=== PATIENT | female | born 1935 | race Caucasian/White ===

== ENCOUNTER 2017-05-13 08:17 | Observation (INO) ==
--- NOTE | 2017-05-13 08:23 | Emergency Department Note ---
Disposition Clinical Impression: Hypertension Qualifiers: Hypertension type: secondary to other renal disorders Qualified Code(s): I15.1 - Hypertension secondary to other renal disorders; N28.89 - Other specified disorders of kidney and ureter Disposition: Admitted As Inpatient Condition: Good Time of Disposition: 08:51 General Adult HPI - General Stated complaint: hypertension Time Seen by Provider: 05/13/17 08:19 Source: patient Mode of arrival: ambulatory Limitations: no limitations Nursing Notes Reviewed: Yes Vital Signs Reviewed: Yes - History of Present Illness HPI Narrative: 81 year old female presents to the ED with complaints of HTN. I recieved report for Dr. Dee who was prepping patient for bronchoscopy today secondary for further investigation of her lung cancer. Unfortunately, she is further complicated with a long standing history of chronic hypertension secondary to severe kidney disase and it is difficult to manage her blood pressure due to her kidney disease. The anethesia team did feel it was appropiate to sedate patient because of the hyperntension and would like it to be controlled before proceeding with anesthesia. She is asymptomatic and currently her blood pressure is 200/120. Patient arrives to the ED for admission to medicine for a possible bronchoscopy in the morning. Patient denies chest pain, shortness of breath, nausea, vomitting, or abdonminal pain, headache, or motor/senory neuro defecits. Patient baseline blood pressure is typically 170/110s and most recently her nephorlogist increased her atenolol dose. - Related Data Home Medications Medication Instructions Recorded Confirmed Atenolol [Tenormin] 25 mg PO BID 01/23/16 05/07/17 Folic Acid [FA-8] 1 mg PO DAILY 01/23/16 05/07/17 Levothyroxine [Synthroid] 175 mcg PO 0630 01/23/16 05/07/17 Cholecalciferol (D-3) [Vitamin D] 1,000 unit PO DAILY 09/08/16 05/07/17 Multivit-Min/FA/Lycopen/Lutein 1 each PO DAILY 09/08/16 05/07/17 [Centrum Silver Tablet] Valsartan 320 mg PO DAILY 09/08/16 05/07/17 Albuterol Sulfate [Albuterol 1 puff IH AD 04/22/17 05/07/17 Inhaler] Methotrexate [Otrexup] 6 tab PO QWEEK 04/22/17 05/07/17 Montelukast [Singulair] 10 mg PO DAILY 04/22/17 05/07/17 Previous Rx's Medication Instructions Recorded Fluticasone/Salmeterol [Advair 2 puff IH BID #1 blst.w.dev 05/07/17 250-50 Diskus] Allergies Allergy/AdvReac Type Severity Reaction Status Date / Time adalimumab [From Humira] Allergy See Verified 05/13/17 08:21 Comments amlodipine Allergy Palpitation Verified 05/13/17 08:21 s lisinopril Allergy See Verified 05/13/17 08:21 Comments losartan [Losartan] Allergy See Verified 05/13/17 08:21 Comments meperidine [From Demerol] Allergy Vomiting Verified 05/13/17 08:21 latex AdvReac Rash Verified 05/13/17 08:21 black dye AdvReac Hives Uncoded 05/13/17 08:21 Constitutional: Denies: fever, chills, weakness, weight change Eyes: Denies: eye pain, eye discharge, vision change ENT ED: Denies: ear pain, throat pain, dental pain, hearing loss, epistaxis, congestion, dysphagia Cardiovascular: Denies: chest pain, palpitations, dyspnea on exertion, edema, syncope Respiratory: Denies: cough, dyspnea, wheezes, hemoptysis, stridor Gastrointestinal: Denies: abdominal pain, nausea, vomiting, diarrhea, constipation, hematemesis, melena, hematochezia Genitourinary: Denies: dysuria, frequency, hematuria, discharge Musculoskeletal: Denies: back pain, neck pain, arthralgia, myalgia Integumentary: Denies: rash, abrasion, lesions Neurological: Denies: headache, weakness, numbness, paresthesias, confusion, abnormal gait, vertigo Psychiatric: Denies: anxiety, depression, suicidal thoughts, homicidal thoughts , auditory hallucinations, visual hallucinations Endocrine: Denies: fatigue Hematological/Lymphatic: Denies: easy bleeding, easy bruising Allergic/Immunologic: Denies: facial swelling, urticaria Past Medical History - Past Medical History Medical history: Reports: GERD, hypertension, RA, renal disease, thyroid disease , other Surgical history: Reports: cholecystectomy, KISHOR/BSO, other Psychiatric history: Reports: anxiety, depression - Social History Smoking Status: Current every day smoker Smokeless Tobacco Status: No Alcohol use: Reports: none Drug use: Reports: none Physical Exam - General Limitations: no limitations General appearance: alert, in no apparent distress - Head Head exam: atraumatic, normocephalic, normal inspection - Eye Eye exam: Present: normal appearance, PERRL, EOMI - Expanded Eye Exam Pupils: Left: reactive - ENT ENT exam: normal exam, normal oropharynx, mucous membranes moist - Expanded ENT Exam External ear exam: Present: normal external inspection Mouth exam: Present: normal external inspection Teeth exam: Present: normal inspection Throat exam: Present: normal inspection - Neck Neck exam: Present: normal inspection, full ROM, trachea midline - Chest Chest inspection: Present: normal inspection, symmetric chest wall rise - Respiratory Respiratory exam: Present: normal lung sounds bilaterally - Cardiovascular Cardiovascular exam: Present: regular rate, normal rhythm, normal heart sounds - Abdominal Exam Abdominal exam: Present: soft, Non-Tender. Absent: tenderness, distention, guarding, rebound, rigidity - Extremities Exam Extremities exam: Present: normal inspection, full ROM. Absent: tenderness, pedal edema - Expanded Upper Extremity Exam Shoulder exam: Present: normal inspection, full ROM Arm exam: Present: normal inspection, full ROM Elbow exam: Present: normal inspection, full ROM Forearm/Wrist exam: Present: normal inspection, full ROM Hand exam: Present: normal inspection, full ROM Vascular exam: Normal: capillary refill, radial pulse - Expanded Lower Extremity Exam Hip/Pelvis exam: Present: normal inspection, full ROM Upper leg exam: Present: normal inspection, full ROM Knee exam: Present: normal inspection, full ROM Lower leg exam: Present: normal inspection, full ROM Ankle exam: Present: normal inspection, full ROM Foot/toe exam: Present: normal inspection, full ROM Neurovascular/Tendon exam: Absent: motor deficit, sensory deficit, tendon deficit - Back Exam Back exam: Present: normal inspection, full ROM. Absent: tenderness - Neurological Exam Neurological exam: Present: alert, oriented X3 - Expanded Neurological Exam Patient oriented to: Present: person, place, time Speech: Present: fluid speech Cranial nerves: EOM function (II, III, IV, ): Normal, facial sensation (V): Normal, facial palsy (VII): Normal, gag reflex (IX): Normal, tongue deviation ( XII): Normal Cerebellar function: finger to nose: Normal Motor strength - LUE: 4/5 Motor strength - RUE: 4/5 Motor strength - LLE: 4/5 Motor strength - RLE: 4/5 Upper motor neuron exam: rebeca neglect: Absent bilaterally, pronator drift: Absent bilaterally Sensory exam upper extremity: light touch: Normal, pin prick: Normal Sensory exam lower extremity: light touch: Normal, pin prick: Normal Coma Scale Eye Opening: Spontaneous Coma Scale Motor Response: Obeys Commands Coma Scale Verbal Response: Oriented Coma Scale Total: 15 - Psychiatric Psychiatric exam: Present: normal affect, normal mood - Skin Skin exam: Present: warm, dry, intact, normal color Course Course Narrative: we will do a HTN workup in addition to admit to medicine and treat with lopresor at this time. - Reevaluation(s) Reevaluation #1: discussed case with Chele and she is agreeable with plan. Time: 08:51 - Consultations Consultation #1: discussed case with Dr. Deal and she accepts paitne to her service. She would like hydralazine therapy. Time: 08:51 Vital Signs Temperature 97.9 F 05/13/17 08:18 Pulse Rate 83 05/13/17 08:18 Respiratory Rate 16 05/13/17 08:18 Blood Pressure 217/111 05/13/17 08:18 O2 Sat by Pulse Oximetry 95 05/13/17 08:18 Temperature 97.9 F 05/13/17 08:18 Pulse Rate 76 05/13/17 08:30 Respiratory Rate 16 05/13/17 08:30 Blood Pressure 217/102 05/13/17 08:30 O2 Sat by Pulse Oximetry 97 05/13/17 08:30 Oxygen Delivery Oxygen Delivery Room Air
[2017-05-13] MEDS ORDERED: *HR* Metoprolol 5 MG/5 ML VIAL IVP ONE (08:35)
[2017-05-13 08:56] LABS: Basophils # 0.1 K/mcL (0.0-0.2); Basophils % 0.7 %; Eosinophils # 0.3 K/mcL (0.0-0.6); Eosinophils % 3.4 %; Hematocrit 36.7 % (35.3-44.9); Hemoglobin 12.2 g/dL (11.5-15.4); Immature Granulocytes % 1.5 % (0-4); Lymphocytes # 1.3 K/mcL (0.6-4.6); Lymphocytes % 14.5 %; Mean Corpuscular HGB Conc 33.2 g/dL (31.6-35.5); Mean Corpuscular Hemoglobin 32.8 pg (28.0-33.3); Mean Corpuscular Volume 98.7 fL (83.0-100.0); Mean Platelet Volume 11.1 fL (9.4-12.4); Monocytes # 0.9 K/mcL (0.0-1.3); Monocytes % 10.3 %; Neutrophils # 6.4 K/mcL (1.6-8.9); Platelet Count 155 K/mcL (140-400); Red Blood Count 3.72 M/mcL (3.82-4.97); Segmented Neutrophils % 69.6 %
[2017-05-13 09:01] LABS: INR 1.1; Prothrombin Time 12.4 Seconds (9.4-12.1)
[2017-05-13 09:04] LABS: Activated Partial Thrombo Time 27.3 Seconds (26.0-36.0)
[2017-05-13 09:09] LABS: Calcium 9.3 mg/dL (8.6-10.8); Potassium 3.5 mEq/L (3.5-4.5)
[2017-05-13] MEDS ORDERED: *HR* HYDROcodone/Acet 5/325 mg TABLET PO PRN (09:21)
[2017-05-13] MEDS ORDERED: GuaiFENesin/Codeine Oral Soln 5 ML UDC PO PRN (09:21)
[2017-05-13] MEDS ORDERED: Naloxone 0.4 MG/ML INJ IVP PRN (09:23)
[2017-05-13 10:13] LABS: Bilirubin,Urine Negative (Negative); Blood,Urine Negative (Negative); Clarity,Urine Clear (Clear); Color,Urine Yellow (Yellow); Glucose,Urine (UA) Normal (Normal); Ketones,Urine Negative (Negative); Leukocyte Esterase,Urine Moderate (Negative); Nitrite,Urine Negative (Negative); PH,Urine 6.5 pH Units (5.0-8.0); Protein,Urine 100 mg/dL (Neg-Trace); Specific Gravity,Urine 1.017 (1.010-1.025); Urobilinogen,Urine Normal (Normal)
[2017-05-13] MEDS: Budesonide/Formoterol 80/4.5 MDI IH SCH ×2 (10:14→22:46)
[2017-05-13 10:17] LABS: Bacteria,Urine None Seen per hpf (None-Few); Hyaline Casts,Urine None Seen per lpf (None-Few); Squamous Epithelial Cell,Urine Moderate per lpf (None-Few); WBC,Urine 15-30 per hpf (0-3)
[2017-05-13] MEDS: amLODIPine 5 MG TABLET PO SCH (11:11)
--- NOTE | 2017-05-13 13:37 | Pulmonology Consult Note ---
Date of Encounter: 05/13/17 Time of Encounter: 13:35 Assessment and Plan (1) Hilar adenopathy Current Visit: Yes Status: Acute Impression: 1. HTN with Urgency 2. Hilar Adenopathy with history of Renal Cell CA 3. Chronic Cough 4. Tobacco Abuse 5. COPD 6. CKD Recs: -BP now 148/65 appears to have strong anxiety component would restart home meds including BB and ARB (appears generally rns in 160-180s systolic). Goal Diastolic Less then 110 for procedure. Defer to primary medicine service for choice of additional antihypertensive if needed -Suspect Metastatic Renal Cell CA. Plan for EBUS tomorrow with FNA. Please Keep NPO at MD. [facility]. -Likely Post obstructive inflammation/obstruction. Will see if enobronchial dilation can be performed and BAL/Cultures will be obtained. Cough Suppressant ordered. -Tobacco Cessation given. Nicotine replacement if needed while inpatient -Duonebs ordered ever 6 hours -Stable Scr -Cont to monitor renal function. -Chemical DVT prophylaxis while inpatient (2) Tobacco abuse Current Visit: Yes Status: Acute (3) COPD suggested by initial evaluation Current Visit: Yes Status: Acute (4) Hypertensive urgency Current Visit: Yes Status: Acute (5) CKD (chronic kidney disease) stage 3, GFR 30-59 ml/min Current Visit: No Status: Acute (6) Renal cell carcinoma Current Visit: No Status: Acute Qualifiers: Laterality: left Qualified Code(s): C64.2 - Malignant neoplasm of left kidney, except renal pelvis (7) Rheumatoid arthritis Current Visit: No Status: Chronic Qualifiers: Rheumatoid arthritis location: unspecified site Rheumatoid factor presence : unspecified presence Qualified Code(s): M06.9 - Rheumatoid arthritis, unspecified History of Present Illness Consult date: 05/13/17 Requesting physician: Bucky Deal Reason for consult: abnormal CXR/CT Chief complaint: High Blood Pressure History of present illness: This is a pleasant 81-year-old woman with a history of long-standing difficult to control Hypertension with CKD and Rheumatoid Arthritis also has Renal Cell Carcinoma status post left partial nephrectomy in September 2016 but was concern for the patient's Oncologist about possible metastatic disease because of increasing hilar adenopathy new on CT scan from04/14/17 predominately in the right Pararacheal and Hilar region with compression of the RUL bronchus and possible post obstructive PNA at that time. She was scheduled for bronchoscopy with EBUS today for FNA of right hilar LN's but was noted to be hypertensive at the time of the planned procedure. Pulmonology is following the patient for possible repeat bronchoscopy as an inpatient She has smoked cigarettes since the age of approximately 22 and continues to smoke about 4-5 cigarettes a day. She has noticed a chronic cough with occasional hemoptysis (that has been recalcitrant to treatment including at least 2 rounds of antimicrobials )since December and since that time progressive worsening of night sweats she denies weight loss. She has tried inhalers in the past although not sure that she is actually been diagnosed with COPD without much improvement. Additionally she has had a persistent headache since approximately December with an MRI that was negative for metastatic disease Past Med Surg Social Fam HX - Past Medical History Medical history: GERD, hypertension, RA, renal disease, thyroid disease, other Psychiatric history: anxiety, depression - Past Surgical History Surgical History: cholecystectomy, KISHOR/BSO, other - Social History Smoking Status: Current every day smoker Packs per day: 1/ Smokeless Tobacco Status: No Alcohol use: none Drug use: none - Family History Mother Living Status: Father Living Status: Medications and Allergies Folic Acid [FA-8] 1 mg PO DAILY 01/23/16 [History] Levothyroxine [Synthroid] 175 mcg PO 0630 01/23/16 [History] Cholecalciferol (D-3) [Vitamin D] 1,000 unit PO DAILY 09/08/16 [History] Multivit-Min/FA/Lycopen/Lutein [Centrum Silver Tablet] 1 each PO DAILY 09/08/16 [History] Albuterol Sulfate [Albuterol Inhaler] 2 puff IH AD PRN 04/22/17 [History] Methotrexate [Otrexup] 6 tab PO QWEEK 04/22/17 [History] Montelukast [Singulair] 10 mg PO DAILY 04/22/17 [History] Fluticasone/Salmeterol [Advair 250-50 Diskus] 2 puff IH BID #1 blst.w.dev [Rx] Atenolol [Tenormin] 50 mg PO DAILY 05/13/17 [History] Guaifenesin/Codeine Phosphate [Guaifen-Codeine 100-10 mg/5 ml] 5 ml PO Q6H PRN 05/13/17 [History] HYDROcodone/Acet 5/325 mg [[place] 5-325 mg] 1 tab PO Q6H PRN 05/13/17 [History] Levofloxacin [Levaquin] 750 mg PO DAILY 05/13/17 [History] Allergies adalimumab [From Humira] Allergy (Verified 05/13/17 08:21) See Comments SOB and heart fluttering amlodipine Allergy (Verified 05/13/17 08:21) Palpitations lisinopril Allergy (Verified 05/13/17 08:21) See Comments unknown reaction per patient losartan [Losartan] Allergy (Verified 05/13/17 08:21) See Comments unknown reaction per patient meperidine [From Demerol] Allergy (Verified 05/13/17 08:21) Vomiting latex Adverse Reaction (Verified 05/13/17 08:21) Rash black dye Adverse Reaction (Uncoded 05/13/17 08:21) Hives All Systems: A 10-system review of systems was performed and is negative for pertinent findings except as documented above in the HPI. Physical Examination Vital Signs: Vital Signs, Last 4 Hours Temp Pulse Resp BP Pulse Ox 05/13/17 10:36 94 05/13/17 10:19 97.6 F 82 14 148/63 96 05/13/17 10:17 18 97 05/13/17 09:37 16 188/87 General appearance: no acute distress (although occasional severe coughing paroxysms noted ) Eyes: nonicteric ENT: oropharynx moist Effort: normal Auscultation: bilateral: rales Cardiovascular: regular rate and rhythm Gastrointestinal: normoactive bowel sounds, soft, non-tender Integumentary: normal Musculoskeletal: no deformities normal mental status, non-focal exam mood appropriate Results - Laboratory Findings CBC and BMP: 05/13/17 08:40 05/13/17 08:40 PT/INR, D-dimer PT 12.4 Seconds (9.4-12.1) H 05/13/17 08:40 Abnormal lab findings: Abnormal lab results RBC 3.72 M/mcL (3.82-4.97) L 05/13/17 08:40 RDW 17.0 % (11.5-14.5) H 05/13/17 08:40 PT 12.4 Seconds (9.4-12.1) H 05/13/17 08:40 BUN 25 mg/dL (7-20) H 05/13/17 08:40 Creatinine 1.48 mg/dL (0.57-1.11) H 05/13/17 08:40 Est GFR ( Amer) 41 (> 60) L 05/13/17 08:40 Est GFR (Non-Af Amer) 34 (> 60) L 05/13/17 08:40 Glucose 133 mg/dL (70-99) H 05/13/17 08:40 Urine Protein 100 mg/dL (Neg-Trace) H 05/13/17 09:52 Ur Leukocyte Esterase Moderate (Negative) H 05/13/17 09:52 Urine Microscopic RBC 5-15 per hpf (0-3) H 05/13/17 09:52 Urine Microscopic WBC 15-30 per hpf (0-3) H 05/13/17 09:52 Ur Squamous Epith Cells Moderate per lpf (None-Few) H 05/13/17 09:52 Ur Culture Indicated? YES (NO) A 05/13/17 09:52 - Diagnostic Findings Chest x-ray: report reviewed, image reviewed CT scan - chest: report reviewed, image reviewed - Clinical Findings Intake & Output: Intake & Output 05/12/17 05/13/17 05/13/17 23:59 07:59 15:59 Intake Total 0 / 0 Balance 0 / 0 Weight 87.09 kg Consult Discharge Plan - Plan Referrals: Rolando Gorman MD [Partnered Physician] - 05/25/17 10:40 am Deanna Degroot CNP [Primary Care Provider] -
--- NOTE | 2017-05-13 13:40 | Internal Med History&Physical ---
Date of Encounter: 05/13/17 Time of Encounter: 13:35 Assessment and Plan (1) Hypertensive urgency Current visit: Yes Status: Acute BP >200s systolic. s/p hydralazine and lopressor at ED. restarted her home BP meds, have added 10 mg of norvasc. BP currently 148/68, will continue the same as above, IV hydralazine prn for systolic >170. (2) Hilar adenopathy Current visit: Yes Status: Acute planned for bronchocopy tomm, concern for possible metastatic disease. pulmonary has been consulted. INR<2, NPO past MN. (3) Renal cell carcinoma Current visit: No Status: Acute follows with [facility]. s/p left partial nephrectomy. concerned for metastatic renal cell ca with new right hilar adenopathy. f/u with oncology after biopsy results. Qualifiers: Laterality: left Qualified Code(s): C64.2 - Malignant neoplasm of left kidney, except renal pelvis (4) Rheumatoid arthritis Current visit: No Status: Chronic was taking methotrexate but has been stopped given worsening CKD> Qualifiers: Rheumatoid arthritis location: unspecified site Rheumatoid factor presence : unspecified presence Qualified Code(s): M06.9 - Rheumatoid arthritis, unspecified Internal Medicine - H&P: HPI Chief complaint: uncontrolled BP Admitted From: Home Plans for Post Hospital Care: Home History of present illness: Ms. Romano is a 81 year old female with PMH of HTN, h/o renal cell a CA now with possible lung mets was transferred sent by Dr. Dee for uncontrolled BP. SHE is s/p Left nephrectomy on 09/08/2016 renal cell carcinoma, She developed cough for the last few months. CT chest abdomen and pelvis without contrast 08/2017 showed mediastinal and right hilar adenopathy. she was seen by pulmonary adn is planned for bronchoscopy tomm once her BP stabilizes. she states that she takes valsartan and tenormin for errol BP which has not controlled her BP. denies chest pain, sob, fever, headache she reports cough and was recently treated for post obstructive pneumonia. she is also on oral levoflox for UTI as OP. reports her appetite is good, regular bowel movements and no weight loss. she smokes 5 cigs /day. Past Med Surg Social Fam HX - Past Medical History Medical history: GERD, hypertension, RA, renal disease, thyroid disease, other Psychiatric history: anxiety, depression - Past Surgical History Surgical History: cholecystectomy, KISHOR/BSO, other - Social History Smoking Status: Current every day smoker Packs per day: / Smokeless Tobacco Status: No Alcohol use: none Drug use: none - Family History Mother Living Status: Father Living Status: Internal Medicine - H&P: Meds Folic Acid [FA-8] 1 mg PO DAILY 01/23/16 [History] Levothyroxine [Synthroid] 175 mcg PO 0630 01/23/16 [History] Cholecalciferol (D-3) [Vitamin D] 1,000 unit PO DAILY 09/08/16 [History] Multivit-Min/FA/Lycopen/Lutein [Centrum Silver Tablet] 1 each PO DAILY 09/08/16 [History] Albuterol Sulfate [Albuterol Inhaler] 2 puff IH AD PRN 04/22/17 [History] Methotrexate [Otrexup] 6 tab PO QWEEK 04/22/17 [History] Montelukast [Singulair] 10 mg PO DAILY 04/22/17 [History] Fluticasone/Salmeterol [Advair 250-50 Diskus] 2 puff IH BID #1 blst.w.dev [Rx] Atenolol [Tenormin] 50 mg PO DAILY 05/13/17 [History] Guaifenesin/Codeine Phosphate [Guaifen-Codeine 100-10 mg/5 ml] 5 ml PO Q6H PRN 05/13/17 [History] HYDROcodone/Acet 5/325 mg [[place] 5-325 mg] 1 tab PO Q6H PRN 05/13/17 [History] Levofloxacin [Levaquin] 750 mg PO DAILY 05/13/17 [History] Allergies adalimumab [From Humira] Allergy (Verified 05/13/17 08:21) See Comments SOB and heart fluttering amlodipine Allergy (Verified 05/13/17 08:21) Palpitations lisinopril Allergy (Verified 05/13/17 08:21) See Comments unknown reaction per patient losartan [Losartan] Allergy (Verified 05/13/17 08:21) See Comments unknown reaction per patient meperidine [From Demerol] Allergy (Verified 05/13/17 08:21) Vomiting latex Adverse Reaction (Verified 05/13/17 08:21) Rash black dye Adverse Reaction (Uncoded 05/13/17 08:21) Hives All Systems PM: A 10-system review of systems was performed and is negative for pertinent findings except as documented above in the HPI. - Constitutional Constitutional: as per HPI - EENT Eyes: as per HPI Ears: as per HPI Nose, mouth and throat: as per HPI - Breasts Breasts: as per HPI - Cardiovascular Cardiovascular ROS IM: as per HPI - Respiratory Respiratory: as per HPI - Gastrointestinal Gastrointestinal: as per HPI - Genitourinary Genitourinary: as per HPI Menstruation: as per HPI - Musculoskeletal Musculoskeletal ROS IM: as per HPI - Integumentary Integumentary IM: as per HPI - Neurological Neurological ROS: as per HPI - Constitutional Vitals: Temp Pulse Resp BP Pulse Ox 97.6 F 82 14 148/63 94 05/13/17 10:19 05/13/17 10:19 05/13/17 10:19 05/13/17 10:19 05/13/17 10:36 General appearance: Present: A&O X 3, no acute distress Exam: neck- supple chest- b/l clinically clear, occ wheezing, no creptns CVS-s1 and s2, no mr//g abd-soft, non tender, bs are present ext- no edema neuro- no focal deficits Internal Med - H&P Results - Labs CBC & Chem 7: 05/13/17 08:40 05/13/17 08:40 Labs: Urine 05/13/17 Range/Units 09:52 Urine Color Yellow (Yellow) Urine Clarity Clear (Clear) Urine pH 6.5 (5.0-8.0) pH Units Ur Specific [place] 1.017 (1.010-1.025) Urine Protein 100 H (Neg-Trace) mg/dL Urine Glucose (UA) Normal (Normal) mg/dL
[2017-05-13] MEDS ORDERED: Albuterol 2.5 MG/3 ML NEBULIZER IH PRN (13:50)
[2017-05-13] MEDS ORDERED: Levofloxacin 500 MG/100 ML 500 MG/100 ML BAG IVPB SCH (14:00)
[2017-05-13] MEDS ORDERED: HYDROcodone BIT/Homatropine LQ 5 MG/5 ML UDC PO PRN (14:18)
[2017-05-13] MEDS: Ipratropium/Albuterol Neb 3 ML IH SCH ×2 (16:05→22:47)
--- NOTE | 2017-05-13 20:38 | Electrocardiograph Report ---
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
[2017-05-14] MEDS: Ipratropium/Albuterol Neb 3 ML IH SCH ×2 (04:28→09:40)
[2017-05-14 05:36] LABS: Basophils % 0.5 %; Eosinophils # 0.3 K/mcL (0.0-0.6); Eosinophils % 3.5 %; Hematocrit 35.2 % (35.3-44.9); Hemoglobin 11.7 g/dL (11.5-15.4); Immature Granulocytes % 2.9 % (0-4); Lymphocytes # 1.2 K/mcL (0.6-4.6); Lymphocytes % 14.1 %; Mean Corpuscular HGB Conc 33.2 g/dL (31.6-35.5); Mean Corpuscular Hemoglobin 32.9 pg (28.0-33.3); Mean Corpuscular Volume 98.9 fL (83.0-100.0); Mean Platelet Volume 11.7 fL (9.4-12.4); Monocytes # 1.2 K/mcL (0.0-1.3); Monocytes % 13.9 %; Neutrophils # 5.6 K/mcL (1.6-8.9); Platelet Count 128 K/mcL (140-400); Red Blood Count 3.56 M/mcL (3.82-4.97); Red Cell Distribution Width 17.2 % (11.5-14.5); Segmented Neutrophils % 65.1 %
[2017-05-14 05:40] LABS: INR 1.2; Prothrombin Time 12.8 Seconds (9.4-12.1)
[2017-05-14 05:49] LABS: Calcium 9.1 mg/dL (8.6-10.8); Potassium 3.3 mEq/L (3.5-4.5)
[2017-05-14] MEDS ORDERED: *HR* Enoxaparin 30 MG/0.3 ML SYRINGE SQ SCH (06:00)
[2017-05-14] MEDS: amLODIPine 5 MG TABLET PO SCH (07:27)
[2017-05-14] MEDS ORDERED: *HR* FentaNYL (PF) 100 MCG/2 ML VIAL ONE (07:57)
--- NOTE | 2017-05-14 07:59 | Anesthesia Evaluation PreOp ---
Date of Encounter: 05/14/17 Time of Encounter: 07:45 - Past History Planned Operation: Bronch/EBUS Cardiac History: HTN (Hypertensive URgency this admission, maintained on Hydralazine, Lopressor, Norvasc, Atenolol) Pulmonary History: Smoker (1ppd x 60yrs), COPD (maintained on Albuterol, Singulair, Advair diskus), Other (R-Hilar adenopathy concerning for metatstatic dz) [employer]PRESENT[employer]IVE [employer] History: Other (??Trigeminal Neuralgia [subtle R-facial/mouth assymmetry]. Anxiety/Depression) Other Medical History: Renal (Renal Cell Ca s/p L-Nephrectomy 09/08/2016 following w/[facility]), Thyroid, Other (RA maintained on Methotrexate) Anesthesia History: No Prior Anesthetic Complications, Past Anesthesia (L- nephrectomy 09/08/2016, Sadia, Hyster,) Alcohol Use: none Drug use: none Medications and Allergies Folic Acid [FA-8] 1 mg PO DAILY 01/23/16 [History] Levothyroxine [Synthroid] 175 mcg PO 0630 01/23/16 [History] Cholecalciferol (D-3) [Vitamin D] 1,000 unit PO DAILY 09/08/16 [History] Multivit-Min/FA/Lycopen/Lutein [Centrum Silver Tablet] 1 each PO DAILY 09/08/16 [History] Albuterol Sulfate [Albuterol Inhaler] 2 puff IH AD PRN 04/22/17 [History] Methotrexate [Otrexup] 6 tab PO QWEEK 04/22/17 [History] Montelukast [Singulair] 10 mg PO DAILY 04/22/17 [History] Fluticasone/Salmeterol [Advair 250-50 Diskus] 2 puff IH BID #1 blst.w.dev [Rx] Atenolol [Tenormin] 50 mg PO DAILY 05/13/17 [History] Guaifenesin/Codeine Phosphate [Guaifen-Codeine 100-10 mg/5 ml] 5 ml PO Q6H PRN 05/13/17 [History] HYDROcodone/Acet 5/325 mg [[place] 5-325 mg] 1 tab PO Q6H PRN 05/13/17 [History] Levofloxacin [Levaquin] 750 mg PO DAILY 05/13/17 [History] Allergies adalimumab [From Humira] Allergy (Verified 05/13/17 08:21) See Comments SOB and heart fluttering amlodipine Allergy (Verified 05/13/17 08:21) Palpitations lisinopril Allergy (Verified 05/13/17 08:21) See Comments unknown reaction per patient losartan [Losartan] Allergy (Verified 05/13/17 08:21) See Comments unknown reaction per patient meperidine [From Demerol] Allergy (Verified 05/13/17 08:21) Vomiting latex Adverse Reaction (Verified 05/13/17 08:21) Rash black dye Adverse Reaction (Uncoded 05/13/17 08:21) Hives - Meds/Allergy Pre-op Review Medications Reviewed: Yes Allergies Reviewed: Yes Beta Blockers on Current Med List: Yes (Atenolol) If Beta Blockers taken, Date/Time (Last Dose taken): 05/14/2017 @ 0727 Anesthesia Results - Labs 05/14/17 04:55 05/14/17 04:55 Laboratory Results Impressions Chest X-Ray 05/13/17 08:24 IMPRESSION: Early infiltrate seen within the right upper lobe may be secondary to pneumonia or congestive changes. D/ / 05/13/2017 08:42:21 Hank Ingram MD / mily Interpreting Provider: Hank Ingram MD Laboratory Tests 09/03/16 05/13/17 05/13/17 16:30 07:31 08:40 PT INR APTT 27.3 Est GFR (Non-Af Amer) Glucose POC Glucose 131 H Latex Allergen IgE Ab <0.10 Allergen Test Interp SEE NOTE 05/14/17 05/14/17 04:55 04:55 PT 12.8 H INR 1.2 APTT Est GFR (Non-Af Amer) 32 L Glucose 142 H POC Glucose Latex Allergen IgE Ab Allergen Test Interp Anesthesia Exam Vital Signs Temp Pulse Resp BP Pulse Ox 05/14/17 07:44 98.4 F 80 15 154/72 99 05/14/17 06:57 91 15 157/74 05/14/17 04:28 15 98 05/14/17 04:11 98.3 F 88 17 174/83 95 05/14/17 03:27 79 180/83 05/13/17 23:40 99.8 F H 76 19 180/94 96 05/13/17 22:49 15 95 05/13/17 19:43 98.4 F 74 19 172/83 96 05/13/17 16:05 16 96 05/13/17 15:34 97.9 F 73 14 163/79 96 05/13/17 10:36 94 05/13/17 10:19 97.6 F 82 14 148/63 96 05/13/17 10:17 18 97 05/13/17 09:37 16 188/87 05/13/17 09:00 73 16 199/98 95 05/13/17 08:45 74 16 197/87 96 05/13/17 08:30 76 16 217/102 97 05/13/17 08:18 97.9 F 83 16 217/111 95 Intake and Output 05/13/17 05/14/17 05/14/17 23:59 07:59 15:59 Intake Total 1190 / 1190 0 / 0 Output Total 700 / 700 350 / 350 Balance 490 / 490 -350 / -350 Intake: Oral 1190 / 1190 0 / 0 Output: Urine 700 / 700 350 / 350 Other: Meal Dinner Percent of Meal Consumed 5% Weight 87.6 kg Patient Weight 05/14/17 23:59 Weight 87.6 kg Height: 5'4" Weight: 193# BMI = 33 NPO (# of Hours): MNoc - HEENT Pupil (Motor): Pupils equal, EOMI Mallampati: III Teeth: Missing, Poor dentition (cracked upper L premolar) Denture Type: Upper: Partial - [employer]ENT[employer]IVE [employer] LOC: Oriented [employer] Motor: Normal RUE, Normal LUE, Normal RLE, Normal LLE, Deficit Face (subtle facial/smile asymmetry) [employer] Sensory: Normal: RUE, LUE, RLE, LLE, Face - Cardiac Rhythm: Regular Murmur: None - Pulmonary Breath Sounds: bilateral Clear Respiratory Effort: Symmetrical Anesthesia Assess/Plan Modified [place] Scale for Level of Consciousness: Cooperative, oriented, and tranquil Anesthetic Plan: General Monitoring Plan: Standard Monitors Recovery Plan: PACU Anes Supervising Prov Stmt: PT seen/evaluated, R&B Disucssed, questions answered and consent obtained. Charo Reed MD
[2017-05-14] MEDS ORDERED: *HR* Labetalol 20 MG/4 ML SYRINGE IVP PRN (08:20)
[2017-05-14] MEDS ORDERED: *HR* HYDROmorphone (PF) 1 MG/ML SYRINGE IVP PRN (08:20)
[2017-05-14] MEDS ORDERED: Ondansetron 4 MG/2 ML VIAL IVP PRN (08:20)
[2017-05-14] MEDS ORDERED: Folic Acid 1 MG TABLET PO SCH (09:00)
[2017-05-14] MEDS ORDERED: *HR* EPINEPHrine 1 MG/10 ML SYRINGE ONE (09:03)
--- NOTE | 2017-05-14 09:26 | Anesthesia Evaluation Post Op ---
Date of Encounter: 05/14/17 Time of Encounter: 09:26 - Vital Signs Vital Signs: Last Vital Signs Temp 98.6 F 05/14/17 08:54 Pulse 79 05/14/17 09:14 Resp 16 05/14/17 09:14 BP 148/80 05/14/17 09:14 Pulse Ox 98 05/14/17 09:14 - Lungs Lungs: Clear Ascult./Percussion - Airway Airway: Non-obstructed - Cardiovascular Regular Rate - Mental Status Mental Status: Alert & Oriented, Answers Appropriately - Pain Pain Scale: 2 - Nausea Vomiting Nausea Vomiting: Not Present - Hydration Hydration: NPO - Discharge PostOp Status: Transfer Patient to floor
[2017-05-14 09:30] VITALS: BP 162/78
[2017-05-14] MEDS: Budesonide/Formoterol 80/4.5 MDI IH SCH (09:40)
[2017-05-14] MEDS ORDERED: Valsartan 160 MG TABLET PO SCH (12:45)
--- NOTE | 2017-05-14 13:15 | Discharge Summary ---
Date of Encounter: 05/14/17 Time of Encounter: 12:30 - Discharge Diagnosis (1) Hilar adenopathy Priority: Primary Status: Acute (2) COPD (chronic obstructive pulmonary disease) Priority: Secondary Status: Chronic Qualifiers: COPD type: emphysema Emphysema type: unspecified Qualified Code(s): J43.9 - Emphysema, unspecified (3) Renal cell carcinoma Priority: Secondary Status: Chronic Qualifiers: Laterality: left Qualified Code(s): C64.2 - Malignant neoplasm of left kidney, except renal pelvis (4) Hypertensive urgency Priority: Primary Status: Acute (5) Tobacco abuse Priority: Secondary Status: Chronic (6) Hypothyroidism Priority: Secondary Status: Chronic Qualifiers: Hypothyroidism type: unspecified Qualified Code(s): E03.9 - Hypothyroidism , unspecified (7) Rheumatoid arthritis Priority: Secondary Status: Chronic Qualifiers: Rheumatoid arthritis location: unspecified site Rheumatoid factor presence : unspecified presence Qualified Code(s): M06.9 - Rheumatoid arthritis, unspecified (8) CKD (chronic kidney disease) stage 3, GFR 30-59 ml/min Priority: Secondary Status: Chronic - Discharge Medications Prescriptions: amLODIPine [Norvasc] 5 mg PO DAILY #30 tab Home Medications: Folic Acid [FA-8] 1 mg PO DAILY 01/23/16 [History] Levothyroxine [Synthroid] 175 mcg PO 0630 01/23/16 [History] Cholecalciferol (D-3) [Vitamin D] 1,000 unit PO DAILY 09/08/16 [History] Multivit-Min/FA/Lycopen/Lutein [Centrum Silver Tablet] 1 each PO DAILY 09/08/16 [History] Albuterol Sulfate [Albuterol Inhaler] 2 puff IH AD PRN 04/22/17 [History] Methotrexate [Otrexup] 6 tab PO QWEEK 04/22/17 [History] Montelukast [Singulair] 10 mg PO DAILY 04/22/17 [History] Fluticasone/Salmeterol [Advair 250-50 Diskus] 2 puff IH BID #1 blst.w.dev [Rx] Atenolol [Tenormin] 50 mg PO BID 05/13/17 [History] Guaifenesin/Codeine Phosphate [Guaifen-Codeine 100-10 mg/5 ml] 5 ml PO Q6H PRN 05/13/17 [History] HYDROcodone/Acet 5/325 mg [[place] 5-325 mg] 1 tab PO Q6H PRN 05/13/17 [History] Levofloxacin [Levaquin] 750 mg PO DAILY 05/13/17 [History] Valsartan [Diovan] 320 mg PO DAILY 05/14/17 [History] amLODIPine [Norvasc] 5 mg PO DAILY #30 tab 05/14/17 [Rx] Allergies/Adverse Reactions: Allergies adalimumab [From Humira] Allergy (Verified 05/13/17 08:21) See Comments SOB and heart fluttering amlodipine Allergy (Verified 05/13/17 08:21) Palpitations lisinopril Allergy (Verified 05/13/17 08:21) See Comments unknown reaction per patient losartan [Losartan] Allergy (Verified 05/13/17 08:21) See Comments unknown reaction per patient meperidine [From Demerol] Allergy (Verified 05/13/17 08:21) Vomiting latex Adverse Reaction (Verified 05/13/17 08:21) Rash potassium chloride Adverse Reaction (Verified 05/14/17 12:47) Vomiting black dye Adverse Reaction (Uncoded 05/13/17 08:21) Hives Date of admission: 05/13/17 09:18 Primary care physician: Deanna Degroot CNP Consults: 05/13/17 13:26 Consult to Pulmonology [CONS] Routine Consulting Provider: [facility] Reason for Consult: please evaluate for bronchoscopy in this patinet with mediastinal and right hilar adenopathy concerning for metastatic disease. Thank you. Call Completed: Yes Discharging clinician: Lida Mcclendon Anticipated date of discharge: 05/14/17 - Patient Status Disposition: Home, Self-Care Condition: Good Functional capacity at discharge: independent ambulation Overall status at discharge: patient is progressing back to baseline - Discharge Instructions Instructions: Hypothyroidism (DC), Chronic Obstructive Pulmonary Disease (DC), Chronic Hypertension (DC) Follow Up With: Rolando Gorman MD [Partnered Physician] - 05/25/17 10:40 am Deanna Degroot CNP [Primary Care Provider] - Additional Instructions: [facility] to call the floor and provide with an earlier appointment for patient, next week; - Diet and Activity Activity: resume usual activities as tolerated Diet: low fat, low cholesterol, low salt diet, other (renal diet) Hospital course: Ms. Romano is a 81 year old female with history of left renal cell carcinoma status post nephrectomy, presented to pulmonology office for bronchoscopy and biopsy of right hilar lymph nodes, where she was noted to have uncontrolled hypertension and was sent to emergency room. Patient was noted to have hypertensive urgency but responded to oral antihypertensives. Norvasc was added to her regimen. She was admitted to hospitalist service and pulmonology was consulted. She subsequently underwent bronchoscopy and EBUS, FNAC of right hilar lymph nodes, rapid on-site cytology was positive for small cell lung cancer. She is otherwise medically stable for discharge with outpatient follow-up. I have called oncology service and patient will receive follow-up appointment with , who is her Oncologist, in a week. - Time Spent with Patient Total time spent providing and/or coordinating discharge services: Greater than 30 minutes (40 min) - Constitutional Vitals: Temp Pulse Resp BP Pulse Ox 97.8 F 78 16 162/78 95 05/14/17 09:24 05/14/17 09:24 05/14/17 09:40 05/14/17 09:24 05/14/17 11:10 General appearance: Present: A&O X 3, answers questions appropriately - Respiratory Respiratory exam: Present: CTAB. Absent: accessory muscle use, rales, rhonchi, wheezes - Cardiovascular Cardiovascular exam: Present: RRR, +S1, +S2. Absent: diastolic murmur, gallop, rubs, systolic murmur
--- NOTE | 2017-05-14 13:35 | Pulmonology Progress Note ---
Date of Encounter: 05/14/17 Time of Encounter: 13:33 Assessment and Plan (1) Hilar adenopathy Current Visit: Yes Status: Acute She has evidence of what appears to be primary lung malignancy on bronchoscopic examination including rapid on-site cytology from FNA of right hilar lymph node that was positive for likely small cell carcinoma final results are pending. She will need close oncological follow-up as previously scheduled From pulmonary standpoint okay for discharge for ongoing care she can return to her inhaler regimen and I did academic counselor her on the need for smoking cessation Pulmonary will sign off (2) Tobacco abuse Current Visit: Yes Status: Chronic (3) COPD suggested by initial evaluation Current Visit: Yes Status: Acute (4) Hypertensive urgency Current Visit: Yes Status: Acute (5) CKD (chronic kidney disease) stage 3, GFR 30-59 ml/min Current Visit: No Status: Chronic (6) Renal cell carcinoma Current Visit: No Status: Chronic Qualifiers: Laterality: left Qualified Code(s): C64.2 - Malignant neoplasm of left kidney, except renal pelvis (7) Rheumatoid arthritis Current Visit: No Status: Chronic Qualifiers: Rheumatoid arthritis location: unspecified site Rheumatoid factor presence : unspecified presence Qualified Code(s): M06.9 - Rheumatoid arthritis, unspecified Subjective Principal diagnosis: Lymphadenopathy Interval history: She is status post bronchoscopy with EBUS. No untoward effects post procedure. Procedure is notable for a right lesion on the anterior wall of the right lower lobe takeoff along with endobronchial invasion within the apical anterior and posterior segments of the right upper lobe she also had a large pretracheal right hilar lymph node and subcarinal lymph node conglomerations. Objective PUL Vital signs: Last Vital Signs Temp 97.8 F 05/14/17 09:24 Pulse 78 05/14/17 09:24 Resp 16 05/14/17 09:40 BP 162/78 05/14/17 09:24 Pulse Ox 95 05/14/17 11:10 General appearance: no acute distress ENT: oropharynx moist Auscultation: right: rhonchi Cardiovascular: regular rate and rhythm Gastrointestinal: soft, non-tender normal mental status, non-focal exam Results - Laboratory Findings CBC and BMP: 05/14/17 04:55 05/14/17 04:55 PT/INR, D-dimer PT 12.8 Seconds (9.4-12.1) H 05/14/17 04:55 Abnormal lab findings: Abnormal lab results RBC 3.56 M/mcL (3.82-4.97) L 05/14/17 04:55 Hct 35.2 % (35.3-44.9) L 05/14/17 04:55 RDW 17.2 % (11.5-14.5) H 05/14/17 04:55 Plt Count 128 K/mcL (140-400) L 05/14/17 04:55 PT 12.8 Seconds (9.4-12.1) H 05/14/17 04:55 Potassium 3.3 mEq/L (3.5-4.5) L 05/14/17 04:55 BUN 21 mg/dL (7-20) H 05/14/17 04:55 Creatinine 1.55 mg/dL (0.57-1.11) H 05/14/17 04:55 Est GFR ( Amer) 39 (> 60) L 05/14/17 04:55 Est GFR (Non-Af Amer) 32 (> 60) L 05/14/17 04:55 Glucose 142 mg/dL (70-99) H 05/14/17 04:55 Urine Protein 100 mg/dL (Neg-Trace) H 05/13/17 09:52 Ur Leukocyte Esterase Moderate (Negative) H 05/13/17 09:52 Urine Microscopic RBC 5-15 per hpf (0-3) H 05/13/17 09:52 Urine Microscopic WBC 15-30 per hpf (0-3) H 05/13/17 09:52 Ur Squamous Epith Cells Moderate per lpf (None-Few) H 05/13/17 09:52 Ur Culture Indicated? YES (NO) A 05/13/17 09:52 - Microbiology Findings Microbiology Findings: Microbiology, Last 48 Hours 05/13/17 09:52 Urine Culture - Final Urine,Clean Catch No pathogens isolated. - Clinical Findings Intake & Output: Intake & Output 05/13/17 05/14/17 05/14/17 23:59 07:59 15:59 Intake Total 1190 / 1190 0 / 0 Output Total 700 / 700 350 / 350 Balance 490 / 490 -350 / -350 Weight 87.6 kg Consult Discharge Plan - Plan Additional Instructions: [facility] to call the floor and provide with an earlier appointment for patient, next week; Referrals: Rolando Gorman MD [Partnered Physician] - 05/25/17 10:40 am Deanna Degroot CNP [Primary Care Provider] - Prescriptions: amLODIPine [Norvasc] 5 mg PO DAILY #30 tab
[2017-05-14 14:10] LABS: Source of Body Fluid RUL BAL
[2017-05-14 14:11] LABS: Appearance of Body Fluid Slightly Hazy (Clear); Volume of Body Fluid 15 mL
== END 2017-05-14 15:31 | disposition home or self-care (01) ==
LOC: EMEROO 08:17 → 2NENU 08:17
PROVIDERS: ADMIT Internal Medicine; ATTEND Internal Medicine